=== PATIENT | female | born 1995 | race Caucasian/White ===

== ENCOUNTER 2020-09-30 14:55 | Outpatient (REF) | payer OTHER, SELFPAY ==
[2020-10-01 13:03] LABS: CT PCR NOT DETECTED (Not Detect.); NG PCR NOT DETECTED (Not Detect.)
== END 2020-09-30 14:56 | disposition home or self-care (01) ==
LOC: HO.LAB 14:55
PROVIDERS: Visit Provider Advanced Practice Midwife
DX: Z01.419 Encounter for gynecological examination (general) (routine) without abnormal findings (principal); Z20.2 Contact with and (suspected) exposure to infections with a predominantly sexual mode of transmission
CPT/HCPCS: 87491; 87591

== ENCOUNTER 2024-09-26 08:02 | Emergency (ER) | payer OTHER, SELFPAY ==
--- NOTE | ~2024-09-26 | XR_ITS ---
EXAMINATION: XR CHEST CLINICAL INFORMATION: Cough COMPARISON: 08/08/2018. TECHNIQUE: 2 views of the chest were obtained. FINDINGS: Cardiac, hilar, and mediastinal contours are normal. Patchy airspace opacity in the inferior right upper lobe abutting the hilum, suggestive of pneumonia. Lungs otherwise clear. There are no effusions or pneumothorax. Bony structures and soft tissues demonstrate no abnormalities. XR/XR chest 2V IMPRESSION: -Right upper lobe patchy pneumonia. Recommend radiographic follow-up after treatment to document resolution. -No effusion or other abnormality. Electronically signed by: Kapil Waddell MD 09/26/2024 09:50 AM EST
[2024-09-26 08:11] VITALS: BP 120/86; PULSE 119; RESP 18; TEMP 37.1; O2SAT 99; BMI 31.8
[2024-09-26 08:28] LABS: MANUAL DIFF FLAG NO
[2024-09-26 08:30] LABS: Basophils Percent Auto 0.4 % (0-2); Eosinophils Absolute Auto 0.1 X10*3/uL (0.0-0.4); Eosinophils Percent Auto 1.3 % (0-4); Hematocrit 40.4 % (37.0-47.0); Hemoglobin 13.9 g/dl (12.0-16.0); Imm Gran Abs Auto 0.05 X10*3/uL (0.00-0.03); Imm Gran Pct Auto 0.5 % (0.0-0.4); Lymphocytes Absolute Auto 2.7 X10*3/uL (1.2-4.9); Lymphocytes Percent Auto 27.2 % (20-40); Mean Corpuscular HGB Conc 34.4 g/dl (31.0-35.0); Mean Corpuscular Hemoglobin 31.3 pg (27.0-33.0); Mean Platelet Volume 9.7 fL (9.4-12.3); Monocytes Absolute Auto 0.7 X10*3/uL (0.1-1.2); Monocytes Percent Auto 7.4 % (2-11); Neutrophils Absolute Auto 6.2 x10*3/uL (2.0-8.3); Neutrophils Percent Auto 63.2 % (45-73); Platelet Count 285 X10*3/uL (160-400); Red Blood Count 4.44 X10*6/uL (4.20-5.50); Red Cell Distribution Width 11.7 % (11.0-16.0); White Blood Count 9.8 X10*3/uL (4.8-10.8)
[2024-09-26 08:35] LABS: IDNOW Serial# 08D9AD1C; Strep A Nucleic Acid Positive (Negative)
[2024-09-26 08:44] LABS: Anion Gap 15 (12-20); Blood Urea Nitrogen 12 mg/dL (9-16); Calcium 9.7 mg/dL (8.4-10.2); Carbon Dioxide 21 mmol/L (22-29); Chloride 111 mmol/L (96-108); Creatinine Clr Calc Pharmacy 102.5; Estimated Glomerular Filt Rate > 60; Glucose Random 111 mg/dL (60-115); Potassium 4.1 mmol/L (3.3-5.1); Sodium 143 mmol/L (135-145)
[2024-09-26 09:05] LABS: HCG Quantitative < 2 mIU/mL
[2024-09-26 09:26] LABS: Influenza A PCR NEGATIVE (Negative); Influenza B PCR NEGATIVE (Negative); Resp Syncy Virus RNA Qual PCR NEGATIVE (Negative); SARS COV2 PCR INHOUSE NEGATIVE (Negative)
[2024-09-26 12:57] VITALS: BP 133/80; PULSE 107; RESP 20; TEMP 36.9; O2SAT 98
--- NOTE | 2024-09-26 13:00 | ED.GENADULT ---
HPI - General Adult General Chief complaint: Upper Respiratory Symptoms Stated complaint: Cough, fever Time Seen by Provider: 09/26/24 12:59 Source: patient Mode of arrival: ambulatory Limitations: no limitations History of Present Illness ED Provider: Justen KRAFT HPI narrative: 29 yold female with no pmh presents to the ED for coughing green pleghm, chest discomfort, sore throat, fevers, and diarrhea since tuesday. patient states no SOB. Related Data Previous Rx's ?Medication ?Instructions ?Recorded norgestimate 0.25 mg-ethinyl 1 tab PO DAILY #28 tabs 09/30/20 estradiol 35 mcg tablet amoxicillin 875 mg-potassium 1 tab PO Q12H 5 days #10 tabs 09/26/24 clavulanate 125 mg tablet benzonatate 200 mg capsule 200 mg PO TID PRN cough 5 days #15 09/26/24 caps doxycycline hyclate 100 mg capsule 100 mg PO BID 7 days #14 caps 09/26/24 Allergies Allergy/AdvReac Type Severity Reaction Status Date / Time SEASONAL ALLERGIES Allergy Unknown SEASONAL Uncoded 09/26/24 08:13 Review of Systems Review of Systems: coughing, sore throat, fever, , chest discomfort, and coughing, green phelhm Yes all other systems are reviewed and are negative [facility] Past Medical History Medical History History of PCOS Surgical History Hx of section Hx of wisdom tooth extraction Social History Social History Alcohol intake: current Alcohol intake frequency: a few times a month Substance Use Type: Marijuana Advance Directives: No Advance Directives Information Provided: Yes Sexual orientation: Straight/Heterosexual Gender identity: Female Physical Exam ED Vital Signs: Vital Signs - 24 hr 09/26/24 12:57 09/26/24 13:10 Temperature 98.4 F 98.4 F Pulse Rate 107 H 107 H Respiratory Rate 20 20 Blood Pressure 133/80 133/80 Pulse Oximetry 98 98 Oxygen Delivery Method Room Air BMI result Body Mass Index 31.8 Const General: cooperative, healthy appearing, comfortable and no acute distress Orientation/consciousness: patient oriented x3 HENMT Head: Yes normal to inspection, Yes No palpable skull fracture present, Yes normocephalic and Yes atraumatic Ears: hearing grossly normal bilaterally, external ears normal, TM's normal bilaterally, TM normal on the right, TM normal on the left, EAC's normal, mastoids normal and no periauricular adenopathy Throat: Yes posterior oropharynx normal, Yes tonsils normal and Yes uvula midline Eyes General: appearance normal, both eyes and all related structures Neck Neck: Yes normal visual inspection, Yes full ROM, Yes no lymphadenopathy, Yes no meningeal signs, Yes trachea midline, Yes supple, No anterior neck swelling and No tender Chest Chest palpation & inspection: normal inspection of the chest and normal palpation of entire chest wall Resp Effort & Inspection: normal respiratory effort and able to speak in complete sentences Auscultation: clear to auscultation bilaterally Cardio Jugular venous distension: no JVD Heart sounds: S1 normal heart sound present and S2 normal heart sound present GI Inspection: Yes normal to inspection Palpation (GI): Soft to palpation, not firm, nontender, no guarding and not rigid General: Yes no CVA tenderness Back/Spine/Pelvis Back: no CVA tenderness and No back tenderness Skin General skin exam: no rashes or lesions noted, elasticity normal and turgor normal Neuro General: patient oriented x3, gait normal, tone normal, moves all extremities, Normal light touch and pain sensation, no meningeal signs, no focal motor deficits, CN's II-XI intact bilaterally and normal sensation to monofilament Extrem General: Yes normal to inspection, Yes full ROM and Yes capillary refill normal Psych Appearance: grossly normal, well kempt and not disheveled Medical Decision Making Medical Decision Making [facility] Narrative: 29-year-old female presents to ED for URI symptoms sore throat and cough. Chest x-ray shows pneumonia. Patient has positive strep. Patient's vital signs are stable. O2 sat 100% room air. Lungs are clear. Patient will be discharged with antibiotics. Patient explained worrisome signs informed to return to the ED immediately. not suspecting peritonsillar abscess, hypoxia or sepsis Differential Diagnosis Differential Diagnoses: The differential diagnosis associated with the presentation includes (Pneumonia, COVID, influenza, RSV) Admission/Observation Consideration of admission/observation: Escalation of care including admission/observation considered Lab Data [facility] Lab Attestation statement: I reviewed the patient's lab results. 11/13/24 08:25 09/26/24 08:25 Labs: Lab Results 09/26/24 Range/Units 08:25 WBC 9.8 (4.8-10.8) X10*3/uL RBC 4.44 (4.20-5.50) X10*6/uL Hgb 13.9 (12.0-16.0) g/dl Hct 40.4 (37.0-47.0) % MCV 91.0 (80.0-98.0) fL MCH 31.3 (27.0-33.0) pg MCHC 34.4 (31.0-35.0) g/dl RDW 11.7 (11.0-16.0) % Plt Count 285 (160-400) X10*3/uL MPV 9.7 (9.4-12.3) fL Immature Gran % (Auto) 0.5 H (0.0-0.4) % Neut % (Auto) 63.2 (45-73) % Lymph % (Auto) 27.2 (20-40) % Morehouse % (Auto) 7.4 (2-11) % Eos % (Auto) 1.3 (0-4) % Baso % (Auto) 0.4 (0-2) % Lymph # (Auto) 2.7 (1.2-4.9) X10*3/uL Morehouse # (Auto) 0.7 (0.1-1.2) X10*3/uL Eos # (Auto) 0.1 (0.0-0.4) X10*3/uL Baso # (Auto) 0.0 (0.0-0.2) X10*3/uL Abs Immat Gran (auto) 0.05 H (0.00-0.03) X10*3/uL Absolute Neuts (auto) 6.2 (2.0-8.3) x10*3/uL Absolute Nucleated RBC 0.000 (0.0-0.012) X10*3/uL Nucleated RBC % (auto) 0.0 (0.0-0.2) /100WBC Sodium 143 (135-145) mmol/L Potassium 4.1 (3.3-5.1) mmol/L Chloride 111 H (96-108) mmol/L Carbon Dioxide 21 L (22-29) mmol/L Anion Gap 15 (12-20) BUN 12 (9-16) mg/dL Creatinine 0.72 (0.5-1.4) mg/dL Estim Creat Clear Calc 102.5 Estimated GFR > 60 Random Glucose 111 (60-115) mg/dL Calcium 9.7 (8.4-10.2) mg/dL Beta HCG, Quant < 2 mIU/mL Influenza Type A (PCR) NEGATIVE (Negative) Influenza Type B (PCR) NEGATIVE (Negative) RSV RNA Qual (PCR) NEGATIVE (Negative) SARS-CoV-2 RNA (RT-PCR) NEGATIVE (Negative) S. pyogenes GrpA GARCÍA Positive A (Negative) Independent Interpretation I performed an independent interpretation of an: Plain X-Ray Radiology Impression Discussion of test interpretation with radiology: I have reviewed the radiologist's reading. Independent Historian Clinical information obtained from an independent historian. History obtained from or confirmed by: Other (Patient) External Record Review External record reviewed: Other (Visits) Prescription Management I considered prescription management with: Antibiotic Discharge Plan Discharge Clinical Impression: CAP (community acquired pneumonia), Strep throat Patient Disposition: Home, Self-Care Instructions: Strep Throat (ED), Community Acquired Pneumonia (ED) Additional Instructions: Chest x-ray showed pneumonia. Came back positive for strep. You will be discharged with antibiotics. Return to the ED immediately for any shortness of breath, coughing up blood, weakness, dizziness, inability tolerate solid food/liquid, change in voice,, drooling, or any other concerning symptoms. Recommend follow-up with PCP XR/XR chest 2V IMPRESSION: -Right upper lobe patchy pneumonia. Recommend radiographic follow-up after treatment to document resolution. -No effusion or other abnormality. Electronically signed by: Kapil Waddell MD 09/26/2024 09:50 AM EST IDW Serial# [id number] Strep A NA Positive A Negative Prescriptions: New doxycycline hyclate 100 mg capsule 100 mg PO BID 7 Days Qty: 14 0RF amoxicillin-pot clavulanate 875-125 mg tablet 1 tab PO Q12H 5 Days Qty: 10 0RF benzonatate 200 mg capsule 200 mg PO TID PRN (Reason: cough) 5 Days Qty: 15 0RF No Action norgestimate-ethinyl estradiol 0.25-35 mg-mcg tablet 1 tab PO DAILY Qty: 28 11RF Referrals: Paul Cleaning MD [Primary Care Provider] - (Pneumonia and strep) Stand Alone Forms: Work/School Release Interventions: ED Discharge Assessment Last Done: 09/26/24 13:10 Discharge Date/Time: 09/26/24 13:10 Print Language: Jamaican
[2024-09-26 13:10] VITALS: BP 133/80; PULSE 107; RESP 20; TEMP 36.9; O2SAT 98
== END 2024-09-26 13:10 | disposition home or self-care (01) ==
PROVIDERS: Emergency Provider Student in an Organized Health Care Education/Training Program; PCP Internal Medicine
DX: J18.9 Pneumonia, unspecified organism (principal); J02.0 Streptococcal pharyngitis; R05.9 Cough, unspecified; R50.9 Fever, unspecified; R07.89 Other chest pain; J02.9 Acute pharyngitis, unspecified; Z03.818 Encounter for observation for suspected exposure to other biological agents ruled out
CPT/HCPCS: 0241U; 36415; 71046; 80048; 84702; 85025; 87651; 99282; 99283

== ENCOUNTER → 2024-09-26 08:16 | Outpatient (BNV) | payer OTHER, SELFPAY | PROVIDERS: PCP Internal Medicine; Visit Provider Radiology Diagnostic Radiology | DX: R05.9 Cough, unspecified (principal) | CPT/HCPCS: 71046 ==

== ENCOUNTER 2024-12-12 07:57 | Emergency (ER) | payer OTHER, SELFPAY ==
--- NOTE | ~2024-12-12 | XR_ITS ---
EXAMINATION: XR CHEST CLINICAL INFORMATION: Cough, chest discomfort COMPARISON: September 26, 2024 TECHNIQUE: 2 views of the chest were obtained. FINDINGS: No consolidation, pleural effusion or pneumothorax. No hyperinflation. Cardiomediastinal silhouette is normal in size. Osseous structures are intact with mild multilevel lower thoracic spondylosis. XR/XR chest 2V IMPRESSION: No acute airspace disease. Electronically signed by: Viral Hamlin MD 12/12/2024 09:20 AM F[facility]
[2024-12-12 08:05] VITALS: BP 124/92; PULSE 108; RESP 17; TEMP 37.6; O2SAT 98; BMI 31.2
[2024-12-12 08:32] LABS: IDNOW Serial# 58CA691E; Strep A Nucleic Acid Negative (Negative)
[2024-12-12 09:08] LABS: Influenza A PCR POSITIVE (Negative); Influenza B PCR NEGATIVE (Negative); Resp Syncy Virus RNA Qual PCR NEGATIVE (Negative); SARS COV2 PCR INHOUSE NEGATIVE (Negative)
--- NOTE | 2024-12-12 09:14 | ED_ITS ---
HPI - General Adult General Chief complaint: Upper Respiratory Symptoms Stated complaint: Cough Vomiting Time Seen by Provider: 12/12/24 09:13 Source: patient Mode of arrival: ambulatory Limitations: no limitations History of Present Illness ED Provider: Arianna Nice PA-C HPI narrative: Patient is a 29 year old assigned female at with a history of PCOS presenting to the emergency department today with a cough, body aches, sore throat, and nausea. Patient states that over the last few days she has had a cough, body aches, sore throat, and nausea. Patient states that her children at home have been sick. Patient denies any dizziness, lightheadedness, abdominal pain, vomiting, fever, chills, blurry vision, double vision, loss of vision, chest pain, difficulty breathing, shortness of breath, back pain, night sweats, pain with urination, increased urinary frequency, increased urinary urgency, blood in her urine or stool, syncope or a near syncopal episode, recent trauma or falls, bowel incontinence, bladder incontinence, or any other complaints at this time. Onset (ago): day(s) Relieving factors: none Exacerbating factors: none Associated symptoms: cough and nausea/vomiting Treatments prior to arrival: none Related Data Previous Rx's ?Medication ?Instructions ?Recorded norgestimate 0.25 mg-ethinyl 1 tab PO DAILY #28 tabs 09/30/20 estradiol 35 mcg tablet amoxicillin 875 mg-potassium 1 tab PO Q12H 5 days #10 tabs 09/26/24 clavulanate 125 mg tablet benzonatate 200 mg capsule 200 mg PO TID PRN cough 5 days #15 09/26/24 caps doxycycline hyclate 100 mg capsule 100 mg PO BID 7 days #14 caps 09/26/24 Allergies Allergy/AdvReac Type Severity Reaction Status Date / Time SEASONAL ALLERGIES Allergy Unknown SEASONAL Uncoded 12/12/24 08:07 Review of Systems Constitutional: Constitutional: Reports no additional constitutional complaints, Reports body ache(s), Denies chills, Denies fever(s) and Denies night sweats Eyes: Eyes: Reports no additional eye complaints, Denies blurry vision, Denies change in vision, Denies diplopia, Denies eye discharge, Denies loss of vision and Denies eye pain ENT: Denies dizziness and Reports sore throat Cardiovascular: Cardiovascular: Reports no additional cardiovascular complaints, Denies chest pain, Denies lightheadedness, Denies Loss of Consciousness and Denies dyspnea Respiratory: Respiratory: Reports no additional respiratory complaints and Denies dyspnea Gastrointestinal: Gastrointestinal: Reports no additional gastrointestinal complaints, Denies abdominal pain, Denies melena, Denies hematochezia, Denies change in bowel habits, Denies change in stool character, Reports nausea and Denies vomiting Genitourinary: Genitourinary: Denies hematuria, Denies urinary frequency, Denies dysuria, Denies urinary incontinence, Denies urinary hesitancy and Denies urinary urgency Musculoskeletal: Musculoskeletal: Reports no additional musculoskeletal complaints, Denies numbness and Denies tingling Neurologic: Denies dizziness, Denies loss of vision, Denies numbness and Denies tingling Psychiatric: Psychiatric: Reports no additional psychiatric complaints Endocrine: Endocrine: Reports no additional endocrine complaints Hematologic/Lymphatic: Hematologic/Lymphatic: Reports no additional hematologic/lymphatic complaints Allergic/Immunologic: Allergic/Immunologic: Reports no additional allergic/immunologic complaints PMFSH Past Medical History Attestation statement: The following information was validated with the patient. Source: old records reviewed and nursing notes reviewed Medical History History of PCOS Surgical History Hx of wisdom tooth extraction Hx of section Social History Social History Alcohol intake: current Alcohol intake frequency: a few times a month Substance Use Type: Marijuana Advance Directives: No Advance Directives Information Provided: Yes Sexual orientation: Straight/Heterosexual Gender identity: Female Physical Exam ED Vital Signs: Vital Signs - 24 hr 12/12/24 08:05 12/12/24 09:25 Temperature 99.6 F 99.6 F Pulse Rate 108 H 108 H Respiratory Rate 17 17 Blood Pressure 124/92 H 124/92 H Pulse Oximetry 98 98 Oxygen Delivery Method Room Air BMI result Body Mass Index 31.2 Const General: cooperative, no acute distress, alert and awake Nutritional Appearance: well nourished Orientation/consciousness: patient oriented x3 Limitations: no limitations HENMT Head: Yes normal to inspection and Yes atraumatic Ears: hearing grossly normal bilaterally and external ears normal General nose exam: Normal external nose present, no nasal discharge noted and no epistaxis Face and sinus: Yes normal facial exam, No abrasion and No laceration Mouth: Normal oral and palatal mucosa present, no drooling and no muffled voice Eyes General: appearance normal, both eyes and all related structures Periorbital: periorbital findings normal Eyelids: Yes eyelids normal Conjunctivae: conjunctivae normal Pupils: Equal, round and reactive pupils present EOM: EOMs intact bilaterally Neck Neck: Yes normal visual inspection, Yes full ROM and Yes no lymphadenopathy Chest Chest palpation & inspection: normal inspection of the chest Resp Effort & Inspection: normal respiratory effort and able to speak in complete sentences GI Inspection: Yes normal to inspection Neuro General: patient oriented x3 and moves all extremities Cranial nerves: Yes Equal, round and reactive pupils present Cognition (Neuro): normal cognition Extrem General: Yes normal to inspection, Yes full ROM and Yes capillary refill normal Psych Appearance: grossly normal Mental Status: mental status grossly normal Affect: normal affect Attitude: cooperative Thought process: Normal thought process present Thought content: Normal thought content present Insight: Good insight present (Psych) Medical Decision Making Medical Decision Making MDM Narrative: Patient is a 29 year old assigned female at with a history of PCOS presenting to the emergency department today with a cough, body aches, sore throat, and nausea. Patient's physical exam was unremarkable. Patient's chest x- ray showed no acute process. Patient's influenza testing was positive. I explained my physical exam findings as well as all test results to the patient. I answered all questions asked by the patient. I stressed the importance of the patient taking her medication as directed (either prescribed or as the over the counter packaging recommends). I stressed the importance of the patient following up with her primary care provider. I stressed the importance of the patient returning to the emergency department immediately if her symptoms were to worsen or if she were to develop any dizziness, shortness of breath, difficulty breathing, chest pain, blurry vision, loss of vision, nausea, vomiting, abdominal pain, fever, chills, back pain, or any other complaints. Patient verbalized agreement and understanding with this treatment plan and discharge. Differential Diagnosis Differential Diagnoses: The differential diagnosis associated with the presentation includes Influenza COVID-19 RSV Viral illness PNA Admission/Observation Consideration of admission/observation: Escalation of care including admission/observation considered Patient would have been admitted to the hospital had her work up had any findings where hospital admission was appropriate and her clinical presentation warranted hospital admission. Lab Data [facility] Lab Attestation statement: I reviewed the patient's lab results. My interpretation of these results are in the [facility] Rationale portion of this note. Labs: Lab Results 12/12/24 Range/Units 08:15 Influenza Type A (PCR) POSITIVE A (Negative) Influenza Type B (PCR) NEGATIVE (Negative) RSV RNA Qual (PCR) NEGATIVE (Negative) SARS-CoV-2 RNA (RT-PCR) NEGATIVE (Negative) S. pyogenes GrpA GARCÍA Negative (Negative) Independent Interpretation I performed an independent interpretation of an: Plain X-Ray Interpretation: My interpretation is in agreement with the radiologist's impression of this imaging study. EXAMINATION: XR CHEST CLINICAL INFORMATION: Cough, chest discomfort COMPARISON: September 26, 2024 TECHNIQUE: 2 views of the chest were obtained. FINDINGS: No consolidation, pleural effusion or pneumothorax. No hyperinflation. Cardiomediastinal silhouette is normal in size. Osseous structures are intact with mild multilevel lower thoracic spondylosis. XR/XR chest 2V IMPRESSION: No acute airspace disease. Electronically signed by: Viral Hamlin MD 12/12/2024 09:20 AM [facility] Dictated By: Viral Neville MD Signed By: Electronically signed by Viral Velásquez MD 12/12/24 0920 Radiology Impression Discussion of test interpretation with radiology: I have reviewed the radiologist's reading. Discharge Plan Discharge Clinical Impression: Influenza Patient Disposition: Home, Self-Care Instructions: Influenza (DC) Additional Instructions: Follow up with your primary care provider. Return to the emergency department immediately if your symptoms worsen or if you develop any dizziness, shortness of breath, difficulty breathing, chest pain, blurry vision, loss of vision, nausea, vomiting, abdominal pain, fever, chills, back pain, or any other complaints. Prescriptions: No Action doxycycline hyclate 100 mg capsule 100 mg PO BID 7 Days Qty: 14 0RF amoxicillin-pot clavulanate 875-125 mg tablet 1 tab PO Q12H 5 Days Qty: 10 0RF benzonatate 200 mg capsule 200 mg PO TID PRN (Reason: cough) 5 Days Qty: 15 0RF norgestimate-ethinyl estradiol 0.25-35 mg-mcg tablet 1 tab PO DAILY Qty: 28 11RF Referrals: Paul Cleaning MD [Primary Care Provider] - Stand Alone Forms: Work/School Release Interventions: ED Discharge Assessment Last Done: 12/12/24 09:25 Discharge Date/Time: 12/12/24 09:26 Print Language: Turkmen
[2024-12-12 09:25] VITALS: BP 124/92; PULSE 108; RESP 17; TEMP 37.6; O2SAT 98
--- OUTSIDE RECORDS SUMMARY | 2024-12-12 10:48 | XMS_ITS | Encounter Summary ---
Author Organization [facility] Address [address] [place] [address] Care Team Providers Care Line Therapist Name Role Phone Paul Cleaning MD Primary Care Provider Encounter Details Date Type Department Care Team ([facility] Contact Info) Description 11/16/2024 Telephone Adult Medicine [address] [phone] Paul Cleaning MD [address] [place] [address] Social History Tobacco Use Types Packs/Day Years Used Date Smoking Tobacco: Former Smokeless Tobacco: Never Alcohol Use Standard Drinks/Week Comments No 0 (1 standard drink = 0.6 oz pur e alcohol) Sex and Gender Information Value Date Recorded Sex Assigned at Not on file Gender Identity Not on file Sexual Orientation Not on file Job Start Date Occupation Industry Not on file Not on file Not on file documented as of this encounter Plan of Treatment Upcoming Encounters Date Type Department Care Team ([facility] Contact Info) Description 01/01/2025 9:00 AM EST Office Visit Adult [address] [phone] Paul Cleaning MD [address] [place] [address] [phone] documented as of this encounter Visit Diagnoses Not on filedocumented in this encounter Care Teams Line Therapist Relationship Specialty Start Date End Date Paul Cleaning MD [address] [place] [address] PCP - General 10/08/22 documented as of this encounter
--- OUTSIDE RECORDS SUMMARY | 2024-12-12 10:48 | XMS_ITS | Clinical Summary ---
Author Organization [facility] [address] [place] [address] [place] [phone] Phone Care Team Providers Care Telephone Station Installer Name Role Phone Paul Cleaning MD Primary Care Provider Allergies No known active allergies Medications Medication Sig Dispensed Refills Start Date End Date Status codeine-guaifenesin 6.3-100 mg/5 mL liquid Take 15 mL by mouth 4 (four) times a day if needed (cough). Max Daily Amount: 60 mL 473 mL 1 10/23/2024 Active omeprazole (PriLOSEC) [address] capsule Take 1 capsule (40 mg total) by mouth 1 (one) time each day. Do not crush or chew. 90 each 10/23/2024 Active Active Problems Problem Noted Date Diagnosed Date Elevated glucose tolerance test 05/04/2023 Overview (10/17/2024): Pt delines 3 hr GTT, would like to treat as if GDM 1 hour test at 24-28 wks: >140 Perform 3 hour if 1 hr >200, patient is diagnosed with GDM and does not need 3-hr GTT Forward chart to Spike Kennedy RN Diabetic teaching and visit with diabetic provider (Ryan or Katrina) 4 times per day testing (fasting and 2 hour postprandial) to be reviewed weekly Goals: fasting <95, 2 hr PP <120 If > or = 1/3 elevated, send to diabetic provider for insulin therapy Serial growth ultrasounds after diagnosis - 07/26 EFW 37%, 09/27 53%, 10/25 68% 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 and add to overview recommendation for Q 1-3 year GTT with PCP Obesity affecting 04/15/2023 Overview (10/17/2024): BMI-30.27 HgbA1C at initial labs 4.7 One hour GTT in first trimester 159 ASA 162mg at 12 weeks until delivery Detailed anatomy ultrasound Repeat GTT 24-28 weeks if early is normal BMI of 50 by 28wks transfer to [facility] DVT prophylaxis- Lovenox if CS and BMI >35 Metabolic dysfunction-associ ated steatotic liver disease (MASLD) 11/01/2022 Overview (10/17/2024): 02/07/23 LFTs WNL, no further action recommended by PCP Marijuana use 04/07/2020 Overview (10/17/2024): 04/2023: states she is trying to stop smoking Aware UDS ordered at OB w/u and random testing will be performed during care 05/04/23 Cutting down, advised to use Zofran for nausea rather than marijuana, reviewed risks to self and fetus of continued use 10/18/2023 UDS +MJ, pt states she will abstain going forward as she would like to breastfeed Generalized anxiety disorder 12/27/2016 Major depressive disorder, recurrent, moderate 0 12/27/2016 Keratosis pilaris 10/17/2012 Encounters Date Type Department Care Team Description 12/11/2024 Telephone Adult Medicine [address] [phone] Paul Cleaning MD Cough; Chest Pain 11/16/2024 Telephone Adult Medicine [address] [phone] Paul Cleaning MD 10/30/2024 Telephone Adult Medicine [address] [phone] Paul Cleaning MD 10/23/2024 1:15 PM EST Office Visit Adult Medicine [address] [phone] Paul Cleaning MD Metabolic dysfunction-associate d steatotic liver disease (MASLD) (Primary Dx); Community acquired pneumonia of right lung, unspecified part of lung; Gastroesophageal reflux disease without esophagitis from Last 3 Months Immunizations Name Administration Dates Next Due Influenza trivalent, 0.5mL, preservative free (Fluarix; FluLaval; Fluzone) ages 6mo and older (Afluria) 3 years and older 10/17/2012 [employer] SARS-CoV-2 COVID -19, vector-nr, [id number], preservative free 11/27/2021 PPD Test 02/14/2018,11/08/2013 Tdap Tetanus diptheria acell ular pertussis (Boostrix; Adacel) 7yo and older 09/22/2023,02/06/2013 Surgical History Surgery Date Site/Laterality Comments OTHER SURGICAL HISTORY PROCEDURE: ---- OTHER ----; COMMENT: bone removal from mouth WISDOM TOOTH EXTRACTION PROCEDURE: HISTORICAL WISDOM TEETH EXTRACTION SECTION PROCEDURE: HISTORICAL DELIVERY Medical History Medical History Date Comments Depression DX:Depression; C OMMENT: Seen at Behavioral health- therapist Kirk Rubio Anxiety DX:Anxiety PCOS (polycystic ovarian syndrome) DX:PCOS (polycystic ovarian syndrome) Helicobacter pylori gastritis DX :Helicobacter pylori gastritis Hepatitis A DX:Hepatitis A History of gestational diabe homero mellitus (GDM) DX:History of gestational di abetes mellitus (GDM); COMMENT: 2nd & 3rd Chronic nausea 04/11/2020 DX:Chronic nause a Family History Medical History Relation Name Comments Other: had oophorectomy, pt unsure why Aunt No Known Problems Father No Known Problems Maternal Grandfather No Known Problems Maternal Grandmother No Known Problems Mother No Known Problems Paternal Grandfather Diabetes Paternal Grandmother No Known Problems Sister 1 No Known Problems Sister 2 Breast cancer Neg Hx Colon cancer Neg Hx Ovarian cancer Neg Hx Relation Name Status Comments Aunt Father Alive healthy Maternal Grandfather Alive Maternal Grandmother Alive Mother Alive healthy Paternal Grandfather Paternal Grandmother Sister 1 Alive Sister 2 Alive Social History Tobacco Use Types Packs/Day Years Used Date Smoking Tobacco: Former Smokeless Tobacco: Never Tobacco Cessation:Counseling Given: Not Answered Alcohol Use Standard Drinks/Week Comments No 0 (1 standard drink = 0.6 oz pur e alcohol) Sex and Gender Information Value Date Recorded Sex Assigned at Not on file Gender Identity Not on file Sexual Orientation Not on file Job Start Date Occupation Industry Not on file Not on file Not on file Obstetrics History Last Filed Vital Signs Vital Sign Reading Time Taken Comments Blood Pressure 90/56 10/23/2024 1:05 PM EST Pulse 94 10/23/2024 1:05 PM EST Temperature 36.8 ??C (98.2 ??F) 10/23/2024 1:05 PM ES T Respiratory Rate 20 10/23/2024 1:05 PM EST Oxygen Saturation - - Inhaled Oxygen Concentration - - Weight 74.8 kg (165 lb) 10/23/2024 1:05 PM EST Height 152.4 cm (5') 10/23/2024 1:05 PM EST Body Mass Index 32.22 10/23/2024 1:05 PM EST Plan of Treatment Upcoming Encounters Date Type Department Care Team (Late st Contact Info) Description 01/01/2025 9:00 AM EST Office Visit Adult Medicine [facility] [address] [place] [phone] Paul Cleaning MD [address] [place] [address] Health Maintenance Due Date Last Done Comments Hepatitis A Vaccines (2 of 2 - 2-dose series) 10/19/2011 04/19/2011 Social Influencers of Health Screening 10/23/2022 COVID-19 Vaccine ( season) 2024 11/27/2021 Influenza Vaccine (#1) 2024 9, 10/17/2012, 02/23/2010 Depression Screening 03/05/2025 03/05/2024 Cervical Cancer Screening: HPV 01/21/2027 01/21/2022 Cholesterol Screening (Lipid Panel) 10/23/2029 10/23/2024, 10/08/2022 DTaP,Tdap,and Td Vaccines (10 - Td or Tdap) 09/22/2033 09/22/2023, 01/21/2020, 02/06/2013, Additional history exists Hepatitis B Vaccines Completed 08/13/1995, 06/13/1995, 1994 HIB Vaccines Completed 04/13/1996, 07/17, 06/13/1995, Additional history exists MMR Vaccines Completed 08/01/1998, 06/13/1995 IPV Vaccines Completed 07/09/1999, 07/17, 06/13/1995, Additional history exists Meningococcal ACWY Vaccine Aged Out 06/21/2006 N o longer eligible based on patient's age to complete this topic HPV Vaccines Completed 07/25/2008, 03/15, 01/23/2008 HIV Screening Completed 05/04/2023 Hepatitis C Screening Completed 05/04/2023 Pneumococcal Vaccine: Pediatrics (0 to 5 Years) and At-Risk Patients (6 to 64 Years) Aged Out No longer eligible based on patient's age to complete this topic RSV Immunization Patients Under 20 months Aged Out No longer eligible based on patient's age to complete this topic Varicella Vaccines Aged Out No longer eligible based on patient's age to complete this topic Procedures Procedure Name Priority Date/Time Associated Diagnosis Comments CBC WITH AUTO DIFFERENTIAL Routine 10/23/2024 1:38 PM EST Community acquired pneumonia of right lung, unspecified part of lung Gastroesophageal reflux disease without esophagitis LIPID PANEL WITH REFLEX TO DIRECT LDL Routine 10/23/2024 1:38 PM EST Metabolic dysfunction-associa fariha steatotic liver disease (MASLD) COMPREHENSIVE METABOLIC PANEL Routine 10/23/2024 1:38 PM EST Metabolic dysfunction-associa fariha steatotic liver disease (MASLD) CBC AND DIFFERENTIAL Routine 10/23/2024 1:38 PM EST Community acquired pneumonia of right lung, unspecified part of lung Gastroesophageal reflux disease without esophagitis DEPRESSION SCREENING Routine 03/05/2024 HEPATITIS C SCREENING Routine 05/04/2023 HIV SCREENING Routine 05/04/2023 HM HPV Routine 01/21/2022 from Last 3 Months or Most Recently Relevant to Health Maintenance Results * Lipid panel with reflex to direct LDL (10/23/2024 1:38 PM EST) Cholesterol 151 0 - 200 mg/dL LAB CHEMISTRY METHOD 10/23/2024 6:[address] [facility] Triglycerides 84 0 - 150 mg/dL LAB CHEMISTRY METHOD 10/23/2024 6:[address] [facility] HDL 55 >=40 mg/dL LAB CHEMISTRY METHOD 10/23/2024 6:[address] [facility] LDL Calculated 79 0 - 100 mg/dL LAB CHEMISTRY METHOD 10/23/2024 6:[address] [facility] VLDL Cholesterol Evert 16.8 mg/dL LAB CHEMISTRY METHOD 10/23/2024 6:[address] [facility] Non HDL Chol. (LDL+VLDL) 96 <145 mg/dL LAB CHEMISTRY METHOD 10/23/2024 6:[address] [facility] Chol/HDL Ratio 2.7 0.0 - 4.4 LAB CHEMISTRY METHOD 10/23/2024 6:[address] [facility] Blood Venous blood specimen / Unknown Venipuncture / Unknown 10/23/2024 1:38 PM EST 10/23/2024 1:38 PM EST Paul Cleaning MD LAB BLOOD [employer] [facility] Organization Address City/State/ZIP Co de Phone Number [facility] [address] [place] [address], * CBC auto differential (10/23/2024 1:38 PM EST) WBC 8.9 4.8 - 10.8 K/mcL LAB HEMETOLOGY METHOD 10/23/2024 4:[address] [facility] RBC 4.50 3.80 - 4.80 M/mcL LAB HEMETOLOGY METHOD 10/23/2024 4:48 PM [facility] Hemoglobin 13.8 11.5 - 16.0 g/dL LAB HEMETOLOGY METHOD 10/23/2024 4:48 PM [facility] Hematocrit 41.8 35.0 - 47.0 % LAB HEMETOLOGY METHOD 10/23/2024 4:48 PM [facility] MCV 93.9 79.0 - 98.0 FL LAB HEMETOLOGY METHOD 10/23/2024 4:48 PM [facility] MCH 31.0 27.0 - 32.0 pcg LAB HEMETOLOGY METHOD 10/23/2024 4:48 PM [facility] MCHC 33.0 32.0 - 37.0 g/dL LAB HEMETOLOGY METHOD 10/23/2024 4:48 PM [facility] RDW 12.0 11.0 - 15.0 % LAB HEMETOLOGY METHOD 10/23/2024 4:48 PM [facility] Platelets 286 130 - 400 K/mcL LAB HEMETOLOGY METHOD 10/23/2024 4:48 PM [facility] MPV 10.3 7.0 - 11.0 FL LAB HEMETOLOGY METHOD 10/23/2024 4:48 PM [facility] NRBC 0.0 <1.0 % LAB HEMETOLOGY METHOD 10/23/2024 4:48 PM [facility] NRBC Absolute 0.00 <0.10 K/mcL LAB HEMETOLOGY METHOD 10/23/2024 4:48 PM [facility] Neutrophils Relative 56.0 % LAB HEMETOLOGY METHOD 10/23/2024 4:48 PM [facility] Lymphocytes Relative 34.1 % LAB HEMETOLOGY METHOD 10/23/2024 4:48 PM [facility] Monocytes Relative 8.1 % LAB HEMETOLOGY METHOD 10/23/2024 4:48 PM [facility] Eosinophils Relative 1.0 % LAB HEMETOLOGY METHOD 10/23/2024 4:48 PM [facility] Basophils Relative 0.5 % LAB HEMETOLOGY METHOD 10/23/2024 4:48 PM [facility] Immature Granulocytes Relative 0.3 % LAB HEMETOLOGY METHOD 10/23/2024 4:48 PM [facility] Neutrophils Absolute 4.97 1.50 - 7.00 K/mcL LAB HEMETOLOGY METHOD 10/23/2024 4:48 PM [facility] Lymphocytes Absolute 3.03 1.00 - 5.00 K/mcL LAB HEMETOLOGY METHOD 10/23/2024 4:48 PM [facility] Monocytes Absolute 0.72 0.20 - 1.00 K/mcL LAB HEMETOLOGY METHOD 10/23/2024 4:[address] [facility] Eosinophils Absolute 0.09 0.00 - 0.50 K/mcL LAB HEMETOLOGY METHOD 10/23/2024 4:48 PM [facility] Basophils Absolute 0.04 0.00 - 0.20 K/mcL LAB HEMETOLOGY METHOD 10/23/2024 4:48 PM [facility] Immature Granulocytes Absolute 0.03 0.00 - 0.03 K/mcL LAB HEMETOLOGY METHOD 10/23/2024 4:48 PM [facility] Blood Venous blood specimen / Unknown Venipuncture / Unknown 10/23/2024 1:38 PM EST 10/23/2024 1:38 PM EST Paul Cleaning MD LAB BLOOD [employer] [facility] Organization Address City/State/ZIP Co de Phone Number [facility] [address] [place] [address], * (ABNORMAL) Comprehensive metabolic panel (10/23/2024 1:38 PM EST) Sodium 139 133 - 145 mmol/L LAB CHEMISTRY METHOD 10/23/2024 6:40 PM [facility] Potassium 4.4 3.5 - 5.5 mmol/L LAB CHEMISTRY METHOD 10/23/2024 6:40 PM [facility] Chloride 105 96 - 110 mmol/L LAB CHEMISTRY METHOD 10/23/2024 6:40 PM [facility] CO2 27 21 - 32 mmol/L LAB CHEMISTRY METHOD 10/23/2024 6:40 PM [facility] Anion Gap 7 3 - 11 LAB CHEMISTRY METHOD 10/23/2024 6:40 PM [facility] Glucose 75 70 - 100 mg/dL LAB CHEMISTRY METHOD 10/23/2024 6:40 PM [facility] BUN 10 5 - 25 mg/dL LAB CHEMISTRY METHOD 10/23/2024 6:40 PM [facility] Creatinine 0.48(L) 0.50 - 1.10 mg/dL LAB CHEMISTRY METHOD 10/23/2024 6:40 PM [facility] eGFR 131 >=60 mL/min/1. 73m2 LAB CHEMISTRY METHOD 10/23/2024 6:40 PM [facility] Comment:Calculation based on the??Chronic Kidney Disease Epidemiology Collaboration (CKD-EPI) equation refit??without adjustment for race. BUN/Creatinine Ratio 20.8 LAB CHEMISTRY METHOD 10/23/2024 6:40 PM [facility] Calcium 9.8 8.5 - 10.5 mg/dL LAB CHEMISTRY METHOD 10/23/2024 6:40 PM [facility] AST (SGOT) 33 10 - 42 unit/L LAB CHEMISTRY METHOD 10/23/2024 6:40 PM [facility] ALT (SGPT) 95(H) 10 - 60 unit/L LAB CHEMISTRY METHOD 10/23/2024 6:[address] [facility] Alkaline Phosphatase 115 42 - 121 unit/L LAB CHEMISTRY METHOD 10/23/2024 6:[address] [facility] Total Protein 7.8 6.0 - 8.0 g/dL LAB CHEMISTRY METHOD 10/23/2024 6:[address] [facility] Albumin 4.1 3.2 - 5.0 g/dL LAB CHEMISTRY METHOD 10/23/2024 6:[address] [facility] Total Bilirubin 0.4 0.0 - 1.4 mg/dL LAB CHEMISTRY METHOD 10/23/2024 6:[address] [facility] Blood Venous blood specimen / Unknown Venipuncture / Unknown 10/23/2024 1:38 PM EST 10/23/2024 1:38 PM EST Paul Cleaning MD LAB BLOOD [employer] [facility] Organization Address City/State/ZIP Co de Phone Number [facility] [address] [place] [address], * Depression Screening (03/05/2024) [facility] Depression Screening abstracted Historical Provider MD SHADIA TREJO * HIV Screening (05/04/2023) [facility] HIV Screening abstracted Historical Provider MD SHADIA TREJO * Hepatitis C Screening (05/04/2023) [facility] Hepatitis C Screening abstracted Historical Provider MD SHADIA TREJO * Cervical Cancer Screening: HPV (01/21/2022) [facility] Cervical Cancer Screening: HPV no interpretation , abstracted Historical Provider MD SHADIA Barry from Last 3 Months or Most Recently Relevant to Health Maintenance Care Teams Telephone Station Installer Relationship Specialty Start Date End Date Paul Cleaning MD [address] [place] [address] PCP - General 10/08/22
--- OUTSIDE RECORDS SUMMARY | 2024-12-12 10:48 | XMS_ITS | Encounter Summary ---
Author Organization [facility] Address [address] [place] [address] Care Team Providers Care Primary Teacher Name Role Phone Paul Cleaning MD Primary Care Provider Reason for Visit * Reason Onset Date Comments Cough 12/11/2024 Chest Pain 12/11/2024 Encounter Details Date Type Department Care Team (Late st Contact Info) Description 12/11/2024 Telephone Adult Medicine [facility] [address] [place] [phone] Paul Cleaning MD [address] [place] [address] Cough; Chest Pain Social History Tobacco Use Types Packs/Day Years [...] on file documented as of this encounter Progress Notes * Shira Wilkerson RN - 12/11/2024 10:41 AM EST Spoke with the pt 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 Vomiting with the cough Ibuprofen at night for body aches with some relief Speaking in complete sentences. No wheeze, stridor or distress noted Advised OTC for symptoms, increase fluids and rest If not improving after a few days or is improving and then feeling worse then to call for eval. She stated understanding * Gabby Chris - 12/11/2024 9:52 AM EST Patient call requires triage: Symptoms patient is presenting: cough, chest pain, vomit when coughing to much, cough sounds like abark How long has patient had these symptoms?: 2 days For ALL patients calling to schedule any appointment (routine, sick visit, follow up, consult, etc.) in the outpatient setting please ask the following questions: Do you have fever of higher than 101, sore throat with difficulty swallowing or severe shortness ofbreath? no If YES to any of these above symptoms, send a message to triage and do not book. Red dot. If no, an audio or video visit should be booked. Have you had close contact with someone with Coronavirus in the last 14 days? no Have you traveled abroad? no Have you traveled recently to another state outside of [place], [place], [place], [place], [place], [place]? no o If yes, did you quarantine for 14 days or have a negative covid test? no If yes to any of the above, patient is not to be scheduled in office until after 14 day quarantine or negative covid test. If pain or injury related was it due to an accident at work or from a motor vehicle accident? If yes, date of accident/Injury: No If yes, gather 3rd republican insurance information Third Libertarian Information: not applicable PCP: Paul Cleaning MD Payor: [facility] [employer] / Plan: [facility] MEDICAID / Product Type: *No Product type* / documented in this encounter Plan of Treatment Upcoming Encounters Date Type Department Care Team (Late st Contact Info) Description 01/01/2025 9:00 AM EST Office Visit Adult Medicine [facility] [address], [place] [phone] Paul Cleaning MD [address] [place] [address] documented as of this encounter Visit Diagnoses Not on filedocumented in this encounter Care Teams Primary Teacher Relationship Specialty Start Date End Date Paul Cleaning MD [address] [place] [address] PCP - General 10/08/22 documented as of this encounter
== END 2024-12-12 09:26 | disposition home or self-care (01) ==
PROVIDERS: Emergency Provider Student in an Organized Health Care Education/Training Program; PCP Internal Medicine
DX: J10.1 Influenza due to other identified influenza virus with other respiratory manifestations (principal); R05.9 Cough, unspecified; R07.89 Other chest pain; Z03.818 Encounter for observation for suspected exposure to other biological agents ruled out
CPT/HCPCS: 0241U; 71046; 87651; 99282; 99283; 99284

== ENCOUNTER → 2024-12-12 08:09 | Outpatient (BNV) | payer OTHER, SELFPAY | PROVIDERS: Emergency Provider Student in an Organized Health Care Education/Training Program; PCP Internal Medicine; Visit Provider Radiology Diagnostic Radiology | DX: R05.9 Cough, unspecified (principal); R07.9 Chest pain, unspecified | CPT/HCPCS: 71046 ==

== ENCOUNTER 2025-04-09 22:53 | Emergency (ER) | payer OTHER, SELFPAY ==
[2025-04-09 22:55] VITALS: BP 133/88; PULSE 109; RESP 16; TEMP 36.2; O2SAT 99; BMI 30.3
[2025-04-09 23:24] LABS: Basophils Percent Auto 0.2 % (0-2); Eosinophils Absolute Auto 0.1 X10*3/uL (0.0-0.4); Eosinophils Percent Auto 0.6 % (0-4); Hematocrit 39.4 % (37.0-47.0); Hemoglobin 13.9 g/dl (12.0-16.0); Imm Gran Abs Auto 0.03 X10*3/uL (0.00-0.03); Imm Gran Pct Auto 0.4 % (0.0-0.4); Lymphocytes Absolute Auto 3.5 X10*3/uL (1.2-4.9); MANUAL DIFF FLAG NO; Mean Corpuscular HGB Conc 35.3 g/dl (31.0-35.0); Mean Corpuscular Hemoglobin 32.6 pg (27.0-33.0); Mean Corpuscular Volume 92.5 fL (80.0-98.0); Mean Platelet Volume 9.4 fL (9.4-12.3); Monocytes Absolute Auto 0.8 X10*3/uL (0.1-1.2); Monocytes Percent Auto 9.3 % (2-11); Neutrophils Percent Auto 47.5 % (45-73); Platelet Count 248 X10*3/uL (160-400); Red Blood Count 4.26 X10*6/uL (4.20-5.50); Red Cell Distribution Width 12.1 % (11.0-16.0); White Blood Count 8.4 X10*3/uL (4.8-10.8)
[2025-04-09 23:31] LABS: Prothrombin Time 11.2 SEC (10.9-12.4)
[2025-04-09 23:44] LABS: Alanine Aminotransferase 53 U/L (0-31); Albumin Level 4.5 g/dL (3.5-5.0); Alkaline Phosphatase 84 U/L (39-117); Anion Gap 11 (12-20); Aspartate Amino Transferase 29 U/L (5-31); Bilirubin Total 0.2 mg/dL (0.0-1.0); Blood Urea Nitrogen 16 mg/dL (9-16); Carbon Dioxide 26 mmol/L (22-29); Chloride 108 mmol/L (96-108); Creatinine Clr Calc Pharmacy 84.7; Estimated Glomerular Filt Rate > 60; Glucose Random 85 mg/dL (60-115); Potassium 4.1 mmol/L (3.3-5.1); Sodium 141 mmol/L (135-145); Total Protein 7.2 g/dL (6.5-8.0)
[2025-04-09 23:46] LABS: HCG Quantitative < 2 mIU/mL
== END 2025-04-10 02:27 | disposition left against medical advice (07) ==
PROVIDERS: Emergency Provider Emergency Medicine; PCP Internal Medicine
DX: J02.9 Acute pharyngitis, unspecified (principal); R09.A2 Foreign body sensation, throat; Z53.21 Procedure and treatment not carried out due to patient leaving prior to being seen by health care provider
CPT/HCPCS: 36415; 80053; 84702; 85025; 85610; 99281